=== PATIENT | female | born 1975 | race Caucasian/White ===

== ENCOUNTER 2018-11-30 01:33 | Emergency (ER) | payer BC, MEDICAID, OTHER ==
--- NOTE | 2018-11-30 02:17 | EDM.PDOC ---
ED HPI GENERAL MEDICAL PROBLEM - General Chief Complaint: Upper Extremity Injury/Pain Stated Complaint: RIGHT WRIST BRUISING Time Seen by Provider: 11/30/18 02:06 - History of Present Illness INITIAL COMMENTS - FREE TEXT/NARRATIVE: 43-year-old female presents with bruising to her right arm. Patient had a coronary angiogram access to right wrist on Thursday. Tonight she noticed some bruising in the area she also thought that maybe her fingers were getting a little tingly and the tips of him returning white. This lasted about 10 minutes and resolved on its own. At this time she has a little bit of discomfort around her wrist. - Related Data Allergies Allergy/AdvReac Type Severity Reaction Status Date / Time hydrocortisone Allergy Anaphylactic Verified 11/30/18 01:50 [From Cortizone-10] Shock hydromorphone HCl Allergy Anaphylactic Verified 11/30/18 01:50 [From Dilaudid] Shock ketorolac tromethamine Allergy Anaphylactic Verified 11/30/18 01:50 [From Toradol] Shock Sulfa (Sulfonamide Allergy Anaphylactic Verified 11/30/18 01:50 Antibiotics) Shock tramadol Allergy Anaphylactic Verified 11/30/18 01:50 Shock magnesium Allergy Anaphylactic Uncoded 12/20/13 13:45 CDT Shock phosphates Allergy Anaphylactic Uncoded 12/20/13 13:45 CDT Shock sulfates Allergy Anaphylactic Uncoded 12/20/13 13:45 CDT Shock sulfer Allergy Anaphylactic Uncoded 12/20/13 13:45 CDT Shock Home Meds: Home Meds Cyanocobalamin (Vitamin B-12) [Vitamin B-12] 1,000 mcg PO DAILY 11/30/18 [ History] Ibuprofen [Advil Migraine] 400 mg PO BID PRN 11/30/18 [History] Rosuvastatin [Crestor] 5 mg PO DAILY 11/30/18 [History] amLODIPine [Norvasc] 5 mg PO DAILY 11/30/18 [History] diphenhydrAMINE [Benadryl] 25 mg PO BEDTIME PRN 11/30/18 [History] Past Medical History - Past Health History Medical/Surgical History: Denies Medical/Surgical History HEENT History: Reports: Impaired Vision Cardiovascular History: Reports: High Cholesterol Hematologic History: Reports: B12 Deficiency Social & Family History - Tobacco Use Smoking Status *Q: Current Every Day Smoker Years of Tobacco use: 20 Packs/Tins Daily: 0.5 - Caffeine Use Caffeine Use: Reports: Soda - Recreational Drug Use Recreational Drug Use: No Review of Systems - Review of Systems Review Of Systems: See Below Constitutional: Reports: No Symptoms Respiratory: Reports: No Symptoms Cardiovascular: Reports: No Symptoms GI/Abdominal: Reports: No Symptoms Neurological: Reports: No Symptoms ED EXAM, GENERAL - Physical Exam Exam: See Below General Appearance: Alert, No Apparent Distress Neck: Normal Inspection, Supple, Non-Tender Respiratory/Chest: No Respiratory Distress, Lungs Clear, Normal Breath Sounds Cardiovascular: Regular Rate, Rhythm, No Edema, No Murmur Extremities: Other (Examination right upper extremity shows intact neurovascular status Were refills less than 2 seconds in all 5 digits she's got good range of motion of all 5 digits. She's got mild swelling and developing mild ecchymosis the palmar surface of the distal forearm. Radial pulses palpable and normal. She has no areas of numbness in this or tingling in her hand at the time of my exam.) Course - Vital Signs Last Recorded V/S: Last Vital Signs Temp 36.3 C 11/30/18 01:41 Pulse 85 11/30/18 01:41 Resp 19 11/30/18 01:41 BP 128/77 11/30/18 01:41 Pulse Ox 99 11/30/18 01:41 Departure - Departure Time of Disposition: 02:23 Disposition: Home, Self-Care 01 Clinical Impression: Bruising - Discharge Information Referrals: PCP,Not In Area [Primary Care Provider] - Additional Instructions: Return to the emergency room with any questions or problems. Follow-up with your regular provider tomorrow for recheck if needed.
== END 2018-11-30 02:28 | disposition home or self-care (01) ==
LOC: JD.ED 01:33
DX: I97.638 Postprocedural hematoma of a circulatory system organ or structure following other circulatory system procedure (principal); F17.210 Nicotine dependence, cigarettes, uncomplicated; E78.00 Pure hypercholesterolemia, unspecified; Z88.6 Allergy status to analgesic agent; Z88.8 Allergy status to other drugs, medicaments and biological substances; Z79.899 Other long term (current) drug therapy; Z88.2 Allergy status to sulfonamides
CPT/HCPCS: 99281; 99283

== ENCOUNTER 2018-12-29 14:24 | Emergency (ER) | payer OTHER ==
--- NOTE | 2018-12-29 15:51 | EDM.PDOCBH ---
ED HPI GENERAL MEDICAL PROBLEM - General Chief Complaint: Behavioral/Psych Stated Complaint: DEPRESSION Time Seen by Provider: 12/29/18 15:30 Source of Information: Reports: Patient History Limitations: Reports: No Limitations - History of Present Illness INITIAL COMMENTS - FREE TEXT/NARRATIVE: 43-year-old female presents to the ER wanting to be put back on her depression and anxiety medication. Patient reports she was on maptroline 25mg tid for several years. She was taken off this is interactive with her blood pressure medication, amlodipine 5mg. She describes interactions as labile blood pressures and tachycardia. Patient states yesterday her blood pressure was 148/ 110 and her heart rate was 148. Patient states because of problems controlling her blood pressure, depression and anxiety and the interaction she is having with medications she has been missing work and states she does not want to leave the house to run errands. She states that she has multiple allergies to preservatives in medications and therefore finding medication that works for her has been very difficult. Patient reports past medical history of depression, anxiety and PTSD. She states she's been suffering with these since about age 9. She was psychiatrically hospitalized, voluntarily, in 2012. She wants to get back on her antidepressant at this time. States that she has tried multiple other antidepressants but the tricyclic is the only that works for her. At this time she is denying suicidal thoughts or plan. She is denying homicidal thoughts or plan. Patient has appointment with her primary care provider tomorrow. - Related Data Allergies Allergy/AdvReac Type Severity Reaction Status Date / Time hydrocortisone Allergy Anaphylactic Verified 12/29/18 14:55 [From Cortizone-10] Shock hydromorphone HCl Allergy Anaphylactic Verified 12/29/18 14:55 [From Dilaudid] Shock ketorolac tromethamine Allergy Anaphylactic Verified 12/29/18 14:55 [From Toradol] Shock Sulfa (Sulfonamide Allergy Anaphylactic Verified 12/29/18 14:55 Antibiotics) Shock tramadol Allergy Anaphylactic Verified 12/29/18 14:55 Shock magnesium Allergy Anaphylactic Uncoded 12/20/13 13:45 CDT Shock phosphates Allergy Anaphylactic Uncoded 12/20/13 13:45 CDT Shock sulfates Allergy Anaphylactic Uncoded 12/20/13 13:45 CDT Shock sulfer Allergy Anaphylactic Uncoded 06/17/14 13:45 CDT Shock Home Meds: Home Meds Cyanocobalamin (Vitamin B-12) [Vitamin B-12] 1,000 mcg PO DAILY 11/30/18 [ History] Ibuprofen [Advil Migraine] 400 mg PO BID PRN 11/30/18 [History] Rosuvastatin [Crestor] 5 mg PO DAILY 11/30/18 [History] diphenhydrAMINE [Benadryl] 25 mg PO BEDTIME PRN 11/30/18 [History] Lisinopril 10 mg PO DAILY #10 tablet 12/29/18 [Rx] Past Medical History - Past Health History Medical/Surgical History: Denies Medical/Surgical History HEENT History: Reports: Impaired Vision Cardiovascular History: Reports: High Cholesterol Hematologic History: Reports: B12 Deficiency Social & Family History - Tobacco Use Smoking Status *Q: Current Every Day Smoker Years of Tobacco use: 20 Packs/Tins Daily: 1 - Caffeine Use Caffeine Use: Reports: Soda ED ROS GENERAL - Review of Systems Review Of Systems: See Below Cardiovascular: Reports: Blood Pressure Problem, Other (Tachycardia) Psychiatric: Reports: Agitation, Depression. Denies: Homicidal Ideation, Suicidal Ideation ED EXAM, BEHAVIORAL HEALTH - Physical Exam Exam: See Below Exam Limited By: No Limitations General Appearance: Alert, WD/WN, No Apparent Distress Respiratory/Chest: No Respiratory Distress Neurological: Alert Psychiatric: Alert, Flat Affect. No: Depressed Mood, Homicidal Thoughts, Suicidal Plan, Suicidal Thoughts Skin Exam: Warm, Dry, Normal color COURSE, BEHAVIORAL HEALTH COMP - Course Vital Signs: Last Vital Signs Temp 97.8 F 12/29/18 14:46 Pulse 89 12/29/18 14:46 Resp 16 12/29/18 14:46 BP 130/89 12/29/18 14:46 Pulse Ox 100 12/29/18 14:46 Re-Assessment/Re-Exam: 16:07 [facility] They're able to compound her medication although they need to identify which preservative she is actually allergic to. her current medications are not compounded and there are preservatives and dyes in these. Therefore is unclear exactly what she is allergic to. They are able to obtain a lisinopril which does not have any dyes in it. I discussed this with the patient. States that it does not dyes she is allergic to but it is the preservatives, however, I'm sure unsure which one she is allergic to. She states she is allergic to any medication ending in -ate. I will have her go to [facility] and talk with them in the meantime I will have her stop her amlodipine because the amlodipine and the maptroline cause an interaction according to her. We will restart maptroline as this medication is the only one that helps her depression, anxiety and PTSD. will start a low dose of lisinopril. She is to follow-up with her primary care provider. Departure - Departure Time of Disposition: 16:07 Disposition: Home, Self-Care 01 Condition: Good Clinical Impression: Depressive disorder, Anxiety, Elevated blood pressure reading - Discharge Information *PRESCRIPTION DRUG MONITORING PROGRAM REVIEWED*: No *COPY OF PRESCRIPTION DRUG MONITORING REPORT IN PATIENT DAJA: No Prescriptions: Lisinopril 10 mg PO DAILY #10 tablet Instructions: Living With Depression Referrals: PCP,Unobtain [Ordering Only Provider] - Forms: ED Department Discharge Additional Instructions: Stop the amlodipine. Start the lisinopril 1 tab daily. Recommend filling your medication at [facility]. They are able to compound medications for your that are free of certain dyes and preservatives. They are located in the [facility]. Restart your depression medication as prescribed. RX for maprotiline 25mg tabs 1 tab PO daily. Follow-up your primary care provider tomorrow as planned. Please return the if your symptoms change or worsen.
== END 2018-12-29 16:42 | disposition home or self-care (01) ==
LOC: JD.ED 14:24
DX: F32.9 Major depressive disorder, single episode, unspecified (principal); F41.9 Anxiety disorder, unspecified; R03.0 Elevated blood-pressure reading, without diagnosis of hypertension; E78.00 Pure hypercholesterolemia, unspecified; F17.210 Nicotine dependence, cigarettes, uncomplicated; Z88.2 Allergy status to sulfonamides; Z88.6 Allergy status to analgesic agent; Z79.899 Other long term (current) drug therapy; Z88.8 Allergy status to other drugs, medicaments and biological substances
CPT/HCPCS: 99283